=== PATIENT | female | born 1945 | race Caucasian/White ===

== ENCOUNTER 2018-04-17 15:09 | Inpatient (IN) | payer MEDICARE, BC, OTHER ==
[~2018-04-17] VITALS: Ht 170.2 cm; Wt 62.6 kg
[2018-04-17] MEDS ORDERED: ASPI-515 PO (16:34)
[2018-04-17] MEDS ORDERED: ATOR40TA PO (16:34)
[2018-04-17] MEDS ORDERED: FOSI20TA PO (16:34)
[2018-04-17] MEDS ORDERED: INSU100C SQ-INSULIN (16:34)
[2018-04-17] MEDS ORDERED: FENTANYL PF 100 MCG/2ML ONE (16:39)
[2018-04-17] MEDS ORDERED: MIDAZOLAM 1 MG/ML, 5ML ONE (16:39)
[2018-04-17] MEDS ORDERED: TICAGRELOR 90 MG TABLET ONE (16:39)
[2018-04-17] MEDS ORDERED: VERAPAMIL 2.5 MG/ML, 2ML ONE (16:40)
[2018-04-17] MEDS ORDERED: BIVALIRUDIN 250 MG ONE (16:40)
[2018-04-17] MEDS ORDERED: HEPARIN 1,000 UNITS/ML, 10ML ONE (16:40)
[2018-04-17] MEDS ORDERED: LIDOCAINE/PF 1%, 30ML ONE (16:46)
[2018-04-17] MEDS ORDERED: MIDAZOLAM 1 MG/ML, 2ML ONE (16:46)
[2018-04-17] MEDS ORDERED: ONDANSETRON ODT 4 MG PO PRN (17:00)
[2018-04-17] MEDS ORDERED: morphine SULFATE 10 MG/ML, 1ML IVPush PRN (17:00)
[2018-04-17] MEDS ORDERED: ONDANSETRON 2MG/ML, 2ML IVPush PRN (17:00)
[2018-04-17] MEDS ORDERED: SODIUM CHLORIDE FLUSH 10ML SYR IVF PRN (17:00)
[2018-04-17 17:27] LABS: HEMOGLOBIN A1C 6.3 % (4.2-6.3)
[2018-04-17] MEDS ORDERED: FUROSEMIDE 20 MG/2 ML IV ONE (17:30)
[2018-04-17] MEDS ORDERED: HEPARIN 5,000 UNITS/ML, 1ML IV PRN (18:30)
[2018-04-17] MEDS ORDERED: HEPARIN 25,000 UNITS/500ML PMX 500 ML IV PRN (18:30)
[2018-04-17] MEDS ORDERED: HEPARIN 5,000 UNITS/ML, 1ML IV ONE (18:30)
[2018-04-17] MEDS: DOXYCYCLINE 100 MG in DEXTROSE 5% 250 ML IV SCH (18:40)
[2018-04-17 19:37] VITALS: BP 155/72
[2018-04-17] MEDS: CEFTRIAXONE 1,000 MG in SODIUM CHLORIDE 0.9% 50 ML IV SCH (20:19)
[2018-04-17] MEDS ORDERED: DEXTROSE 4 GM TAB.CHEW PO PRN (21:00)
[2018-04-17] MEDS ORDERED: LISINOPRIL 10 MG TABLET PO SCH (21:00)
[2018-04-17] MEDS ORDERED: DEXTROSE 50%, 50ML SYRINGE IVPush PRN (21:00)
[2018-04-17] MEDS ORDERED: GLUCAGON 1 MG IM PRN (21:00)
[2018-04-17] MEDS ORDERED: INSULIN LISPRO 100 UNITS/ML, PEN SQ-INSULIN SCH ×2 (21:00)
[2018-04-17] MEDS: INSULIN ASPART 100 UNITS/ML, VIAL SQ-INSULIN SCH (21:30)
[2018-04-17] MEDS: CARVEDILOL 3.125 MG TABLET PO SCH (21:31)
[2018-04-17] MEDS: ATORVASTATIN 40 MG TABLET PO SCH (21:32)
[2018-04-18] MEDS ORDERED: HEPARIN 5,000 UNITS/ML, 1ML IV ONE
[2018-04-18] MEDS: HEPARIN 25,000 UNITS/500ML PMX 500 ML IV PRN (00:43)
[2018-04-18] MEDS ORDERED: ALPH50CA2 PO (01:07)
[2018-04-18] MEDS ORDERED: CALC1TAB72 PO (01:07)
[2018-04-18] MEDS ORDERED: LEVO1CAP3 PO (01:07)
[2018-04-18] MEDS ORDERED: CHOL100012 PO (01:07)
[2018-04-18] MEDS ORDERED: VITA1TAB19 PO (01:07)
[2018-04-18] MEDS ORDERED: ASCO10004 PO (01:07)
[2018-04-18] MEDS ORDERED: GABA600T2 PO (01:07)
[2018-04-18] MEDS ORDERED: VENL75TA PO (01:07)
[2018-04-18] MEDS ORDERED: INSU100C5 SQ-INSULIN (01:07)
[2018-04-18] MEDS ORDERED: INSU300I SC (01:07)
[2018-04-18] MEDS ORDERED: LATA2.5D3 EACHEYE (01:07)
[2018-04-18] MEDS ORDERED: GABA300C10 PO (01:07)
[2018-04-18] MEDS ORDERED: TIMO1DRO2 OP (01:07)
[2018-04-18] MEDS ORDERED: OMEG1CAP23 PO (01:07)
[2018-04-18 01:35] VITALS: BP 101/63
[2018-04-18] MEDS: CARVEDILOL 3.125 MG TABLET PO SCH ×2 (06:30→17:56)
[2018-04-18] MEDS: DOXYCYCLINE 100 MG in DEXTROSE 5% 250 ML IV SCH ×2 (06:31→17:56)
[2018-04-18 07:03] LABS: BASOPHILS # (AUTO) 0.04 x10^3/uL (0-0.1); BASOPHILS % (AUTO) 1 % (0-1); EOSINOPHILS # (AUTO) 0.02 x10^3/uL (0-0.4); EOSINOPHILS % (AUTO) 0 % (1-7); LYMPHOCYTES # (AUTO) 1.38 x10^3/uL (1-3.4); LYMPHOCYTES % (AUTO) 23 % (22-44); MD NO; MEAN CORPUSCULAR HEMOGLOBIN 29.6 pg (27.0-34.8); MEAN CORPUSCULAR HGB CONC 33.2 g/dL (32.4-35.8); MEAN CORPUSCULAR VOLUME 89.1 fL (80-100); MEAN PLATELET VOLUME 9.1 fL (7.4-10.4); MONOCYTES # (AUTO) 0.45 x10^3/uL (0.2-0.8); MONOCYTES % (AUTO) 8 % (2-9); NEUTROPHILS # (AUTO) 4.06 x10^3/uL (1.8-6.8); NEUTROPHILS % (AUTO) 68 % (42-75); PLATELET COUNT 187 x10^3/uL (130-400); RED BLOOD COUNT 3.98 x10^6/uL (3.82-5.3); RED CELL DISTRIBUTION WIDTH 13.2 % (9.6-15.2)
[2018-04-18 07:12] LABS: ALANINE AMINOTRANSFERASE 85 U/L (12-78); ALBUMIN 2.6 g/dL (3.4-5.0); ANION GAP 7 mmol/L (5-15); CALCIUM 8.4 mg/dL (8.5-10.1); CHLORIDE 106 mmol/L (98-107); CHOLESTEROL, TOTAL 157 mg/dL (140-239); CREATININE 0.77 mg/dL (0.55-1.02)
[2018-04-18 07:14] LABS: ALKALINE PHOSPHATASE 92 U/L (45-117); BILIRUBIN,TOTAL 0.4 mg/dL (0.2-1.0); CHOL/HDL RATIO 1.7; HDL CHOL % 59 % (28-40); HDL CHOLESTEROL (DIRECT) 92 mg/dL (40-60); LDL CHOLESTEROL,CALCULATED 56 mg/dL (54-169); LDL/HDL RATIO 0.6 (0.5-3.0); TOTAL PROTEIN 6.1 g/dL (6.4-8.2); TRIGLYCERIDES 43 mg/dL (50-200); VLDL CHOLESTEROL 9 mg/dL (0-25)
[2018-04-18] MEDS: INSULIN ASPART 100 UNITS/ML, VIAL SQ-INSULIN SCH ×4 (08:31→21:51)
[2018-04-18 08:37] VITALS: BP 110/63
[2018-04-18] MEDS ORDERED: INSULIN GLARGINE SQ SCH (09:00)
[2018-04-18] MEDS ORDERED: TIMOLOL OPHTH 0.5%, 5ML OP SCH (09:00)
[2018-04-18] MEDS ORDERED: INSULIN GLARGINE 100 UNITS/ML, PEN SQ-INSULIN SCH (09:00)
[2018-04-18] MEDS: HEPARIN 5,000 UNITS/ML, 1ML IV PRN ×3 (09:10→23:32)
[2018-04-18] MEDS: SPIRONOLACTONE 25 MG TABLET PO SCH (09:11)
[2018-04-18] MEDS: GABAPENTIN 300 MG CAPSULE PO SCH (10:48)
[2018-04-18 14:04] VITALS: BP 160/81
[2018-04-18 20:36] VITALS: BP 121/88
[2018-04-18] MEDS: GABAPENTIN 400 MG CAPSULE PO SCH (20:40)
[2018-04-18] MEDS: ASPIRIN 81 MG TABLET EC PO SCH (20:40)
[2018-04-18] MEDS: FOSINOPRIL 20MG TABLET PO SCH (20:40)
[2018-04-18] MEDS: VENLAFAXINE 37.5MG TABLET PO SCH (20:40)
[2018-04-18] MEDS: ATORVASTATIN 40 MG TABLET PO SCH (20:40)
[2018-04-18] MEDS: LATANOPROST OPHTH 0.005%, 2.5ML EACHEYE SCH (20:41)
[2018-04-18] MEDS: CEFTRIAXONE 1,000 MG in SODIUM CHLORIDE 0.9% 50 ML IV SCH (20:41)
[2018-04-18] MEDS: TIMOLOL OPHTH 0.5%, 5ML OP SCH (20:41)
[2018-04-19 01:54] VITALS: BP 139/83
[2018-04-19] MEDS: HEPARIN 25,000 UNITS/500ML PMX 500 ML IV PRN (04:11)
[2018-04-19] MEDS: CARVEDILOL 3.125 MG TABLET PO SCH ×2 (05:52→18:22)
[2018-04-19] MEDS: DOXYCYCLINE 100 MG in DEXTROSE 5% 250 ML IV SCH ×2 (05:52→20:41)
[2018-04-19] MEDS: TIMOLOL OPHTH 0.5%, 5ML OP SCH ×2 (07:13→20:51)
[2018-04-19] MEDS: TOUJEO 300 UNIT/ML SQ-INSULIN SCH (08:02)
[2018-04-19] MEDS: FOSINOPRIL 20MG TABLET PO SCH ×2 (08:03→20:50)
[2018-04-19] MEDS: GABAPENTIN 300 MG CAPSULE PO SCH (08:04)
[2018-04-19] MEDS: SPIRONOLACTONE 25 MG TABLET PO SCH (08:04)
[2018-04-19] MEDS: ASPIRIN 81 MG TABLET EC PO SCH ×2 (08:04→20:50)
[2018-04-19 08:08] VITALS: BP 122/61
[2018-04-19] MEDS: INSULIN ASPART 100 UNITS/ML, VIAL SQ-INSULIN SCH ×5 (08:09→22:26)
[2018-04-19] MEDS ORDERED: SODIUM CHLORIDE 0.9% 1,000 ML IV ONE (10:00)
[2018-04-19 13:23] VITALS: BP 112/67
[2018-04-19] MEDS ORDERED: MIDAZOLAM 1 MG/ML, 5ML ONE (14:36)
[2018-04-19] MEDS ORDERED: FENTANYL PF 100 MCG/2ML ONE (14:36)
[2018-04-19] MEDS ORDERED: TICAGRELOR 90 MG TABLET ONE (14:36)
[2018-04-19] MEDS ORDERED: LIDOCAINE/PF 1%, 30ML ONE (14:37)
[2018-04-19] MEDS ORDERED: BIVALIRUDIN 250 MG ONE ×2 (14:37→16:19)
[2018-04-19] MEDS ORDERED: VERAPAMIL 2.5 MG/ML, 2ML ONE (14:37)
[2018-04-19] MEDS: SODIUM CHLORIDE 0.9% 1,000 ML IV SCH (17:46)
[2018-04-19] MEDS ORDERED: VENLAFAXINE 50MG TABLET ONE (20:37)
[2018-04-19] MEDS: ATORVASTATIN 40 MG TABLET PO SCH (20:47)
[2018-04-19] MEDS: TICAGRELOR 90 MG TABLET PO SCH (20:47)
[2018-04-19] MEDS: GABAPENTIN 400 MG CAPSULE PO SCH (20:47)
[2018-04-19] MEDS: VENLAFAXINE 37.5MG TABLET PO SCH (20:48)
[2018-04-19] MEDS: LATANOPROST OPHTH 0.005%, 2.5ML EACHEYE SCH (20:51)
[2018-04-19] MEDS: CEFTRIAXONE 1,000 MG in SODIUM CHLORIDE 0.9% 50 ML IV SCH (22:26)
[2018-04-20] MEDS: SODIUM CHLORIDE 0.9% 1,000 ML IV SCH ×2 (02:32→10:00)
[2018-04-20 04:31] LABS: BASOPHILS # (AUTO) 0.02 x10^3/uL (0-0.1); BASOPHILS % (AUTO) 0 % (0-1); EOSINOPHILS # (AUTO) 0.01 x10^3/uL (0-0.4); EOSINOPHILS % (AUTO) 0 % (1-7); LYMPHOCYTES # (AUTO) 0.94 x10^3/uL (1-3.4); LYMPHOCYTES % (AUTO) 13 % (22-44); MD NO; MEAN CORPUSCULAR HEMOGLOBIN 30.1 pg (27.0-34.8); MEAN CORPUSCULAR HGB CONC 33.1 g/dL (32.4-35.8); MEAN CORPUSCULAR VOLUME 90.8 fL (80-100); MEAN PLATELET VOLUME 9.2 fL (7.4-10.4); MONOCYTES # (AUTO) 0.67 x10^3/uL (0.2-0.8); MONOCYTES % (AUTO) 9 % (2-9); NEUTROPHILS # (AUTO) 5.52 x10^3/uL (1.8-6.8); NEUTROPHILS % (AUTO) 77 % (42-75); PLATELET COUNT 175 x10^3/uL (130-400); RED BLOOD COUNT 3.85 x10^6/uL (3.82-5.3); RED CELL DISTRIBUTION WIDTH 13.4 % (9.6-15.2)
[2018-04-20 04:44] LABS: ALANINE AMINOTRANSFERASE 83 U/L (12-78); ALBUMIN 2.5 g/dL (3.4-5.0); ANION GAP 7 mmol/L (5-15); CALCIUM 8.1 mg/dL (8.5-10.1); CHLORIDE 109 mmol/L (98-107); CREATININE 0.86 mg/dL (0.55-1.02)
[2018-04-20 04:46] LABS: BILIRUBIN,TOTAL 0.4 mg/dL (0.2-1.0)
[2018-04-20 04:47] LABS: ALKALINE PHOSPHATASE 100 U/L (45-117); TOTAL PROTEIN 6.1 g/dL (6.4-8.2)
[2018-04-20 05:30] VITALS: BP 129/52
[2018-04-20] MEDS: INSULIN ASPART 100 UNITS/ML, VIAL SQ-INSULIN SCH ×4 (07:00→20:48)
[2018-04-20] MEDS: CARVEDILOL 3.125 MG TABLET PO SCH ×2 (07:25→18:04)
[2018-04-20] MEDS: DOXYCYCLINE 100 MG in DEXTROSE 5% 250 ML IV SCH (07:25)
[2018-04-20] MEDS: TIMOLOL OPHTH 0.5%, 5ML OP SCH ×2 (07:29→20:41)
[2018-04-20] MEDS: SPIRONOLACTONE 25 MG TABLET PO SCH (08:50)
[2018-04-20] MEDS: GABAPENTIN 300 MG CAPSULE PO SCH (08:50)
[2018-04-20] MEDS: TICAGRELOR 90 MG TABLET PO SCH ×2 (08:50→20:42)
[2018-04-20] MEDS: ASPIRIN 81 MG TABLET EC PO SCH ×2 (08:52→20:42)
[2018-04-20] MEDS: TOUJEO 300 UNIT/ML SQ-INSULIN SCH (08:53)
[2018-04-20] MEDS ORDERED: ASPIRIN 81 MG TABLET EC PO SCH (09:00)
[2018-04-20] MEDS ORDERED: ACETAMINOPHEN 325 MG TABLET PO PRN (16:00)
[2018-04-20] MEDS ORDERED: ACETAMINOPHEN 325 MG TABLET ONE (16:06)
[2018-04-20 17:36] VITALS: BP 161/74
[2018-04-20 19:36] VITALS: BP 111/64
[2018-04-20] MEDS: LATANOPROST OPHTH 0.005%, 2.5ML EACHEYE SCH (20:40)
[2018-04-20] MEDS: DOXYCYCLINE 100MG TABLET PO SCH (20:43)
[2018-04-20] MEDS: VENLAFAXINE 37.5MG TABLET PO SCH (20:43)
[2018-04-20] MEDS: GABAPENTIN 400 MG CAPSULE PO SCH (20:43)
[2018-04-20] MEDS: FOSINOPRIL 20MG TABLET PO SCH (20:45)
[2018-04-20] MEDS: CEFTRIAXONE 1,000 MG in SODIUM CHLORIDE 0.9% 50 ML IV SCH (21:18)
[2018-04-20] MEDS: ATORVASTATIN 40 MG TABLET PO SCH (21:18)
[2018-04-21 03:59] VITALS: BP 136/67
[2018-04-21] MEDS: CARVEDILOL 3.125 MG TABLET PO SCH (06:06)
[2018-04-21 07:32] VITALS: BP 132/73
[2018-04-21] MEDS: TOUJEO 300 UNIT/ML SQ-INSULIN SCH (08:48)
[2018-04-21] MEDS: INSULIN ASPART 100 UNITS/ML, VIAL SQ-INSULIN SCH ×2 (08:49→11:00)
[2018-04-21] MEDS: TICAGRELOR 90 MG TABLET PO SCH (09:26)
[2018-04-21] MEDS: SPIRONOLACTONE 25 MG TABLET PO SCH (09:26)
[2018-04-21] MEDS: ASPIRIN 81 MG TABLET EC PO SCH (09:26)
[2018-04-21] MEDS: TIMOLOL OPHTH 0.5%, 5ML OP SCH (09:27)
[2018-04-21] MEDS: FOSINOPRIL 20MG TABLET PO SCH (09:27)
[2018-04-21] MEDS: DOXYCYCLINE 100MG TABLET PO SCH (09:27)
[2018-04-21] MEDS: GABAPENTIN 300 MG CAPSULE PO SCH (09:27)
[2018-04-21] MEDS ORDERED: DOXY100T PO (09:45)
[2018-04-21] MEDS ORDERED: CEFD300C37 PO (09:45)
[2018-04-21] MEDS ORDERED: SPIR25TA PO ×2 (10:56→11:21)
[2018-04-21] MEDS ORDERED: TICA90TA PO ×2 (10:56→11:20)
== END 2018-04-21 12:20 | disposition home or self-care (01) | DRG 215 ==
LOC: ED 16:54 → EDIP 16:55 → ED 17:34 → 5SO 18:27 → CCU 04-19 16:28 → 5SO 04-20 15:35
PROVIDERS: ADMIT Internal Medicine; ATTEND Internal Medicine
PROC: 4A023N7 Measurement of Cardiac Sampling and Pressure, Left Heart, Percutaneous Approach (ICD-10-PCS; principal; 2018-04-17)
PROC: B2111ZZ Fluoroscopy of Multiple Coronary Arteries using Low Osmolar Contrast (ICD-10-PCS; 2018-04-17)
PROC: B2151ZZ Fluoroscopy of Left Heart using Low Osmolar Contrast (ICD-10-PCS; 2018-04-17)
PROC: 02HA3RJ Insertion of Short-term External Heart Assist System into Heart, Intraoperative, Percutaneous Approach (ICD-10-PCS; 2018-04-19)
PROC: 027136Z Dilation of Coronary Artery, Two Arteries with Three Drug-eluting Intraluminal Devices, Percutaneous Approach (ICD-10-PCS; 2018-04-19)
PROC: 5A0221D Assistance with Cardiac Output using Impeller Pump, Continuous (ICD-10-PCS; 2018-04-19)
DX: I21.4 Non-ST elevation (NSTEMI) myocardial infarction (principal); J96.01 Acute respiratory failure with hypoxia; J18.9 Pneumonia, unspecified organism; I10 Essential (primary) hypertension; E10.42 Type 1 diabetes mellitus with diabetic polyneuropathy; I25.10 Atherosclerotic heart disease of native coronary artery without angina pectoris; E10.21 Type 1 diabetes mellitus with diabetic nephropathy; E78.5 Hyperlipidemia, unspecified; I25.5 Ischemic cardiomyopathy; I73.00 Raynaud's syndrome without gangrene; M19.90 Unspecified osteoarthritis, unspecified site; Z82.49 Family history of ischemic heart disease and other diseases of the circulatory system; Z87.891 Personal history of nicotine dependence; Z95.1 Presence of aortocoronary bypass graft
CPT/HCPCS: 33990; 36415; 71045; 80053; 80061; 82962; 83036; 83735; 84100; 84484; 85025; 85520; 87081; 93005; 93306; 93458; 93880; 99156; 99157; 99285; C1760; C1769; C1894; C9600; J0583; J0696; J1644; J2250; J3010; J3490; J7060; C1725; C1874; C1887; J1815; J7030; Q9967